=== PATIENT | male | born 1940 | race Caucasian/White ===

== ENCOUNTER 2021-07-27 19:40 | Emergency (ER) | payer MEDICARE, OTHER ==
[2021-07-27] MEDS ORDERED: Sodium Chloride 0.9% 1,000 ML IV ONE (20:19)
[2021-07-27] MEDS ORDERED: Ketorolac 30 MG/ML SDV IVPUSH ONE (20:19)
--- NOTE | 2021-07-27 20:34 | EDM.PDOC ---
ED HPI GENERAL MEDICAL PROBLEM - General Chief Complaint: Genitourinary Problem Stated Complaint: RIGHT SIDE PAIN Time Seen by Provider: 07/27/21 19:49 Source of Information: Reports: Patient History Limitations: Reports: No Limitations - History of Present Illness INITIAL COMMENTS - FREE TEXT/NARRATIVE: 80-year-old male presents the emergency department with complaints of right flank pain that started about 5:30 PM this evening. Patient states that he was having a glass of wine when he developed right flank pain that radiates into his groin. He states that the pain initially made him feel nauseated however he did not vomit. He states for the past 3 days he has noted blood in his urine however he denies any urinary type symptoms such as frequency urgency or burning. He denies any recent fever, chills, nausea, vomiting or diarrhea. He denies any cough or shortness of breath. He denies having history of kidney stones in the past. Right Abdominal Pain Score (Numeric/FACES): 5 - Related Data Allergies Allergy/AdvReac Type Severity Reaction Status Date / Time No Known Allergies Allergy Verified 07/27/21 19:51 Home Meds: Home Meds Famotidine 40 mg PO DAILY 07/27/21 [History] Hydrocodone/Acetaminophen [HYDROcodone-Acetaminophen 5-325 MG] 1 each PO Q4H #14 tab 07/27/21 [Rx] Omeprazole 20 mg PO DAILY 07/27/21 [History] Venlafaxine [Effexor XR] 75 mg PO DAILY 07/27/21 [History] atorvaSTATin [Lipitor] 20 mg PO DAILY 07/27/21 [History] clonazePAM [Clonazepam] 1 mg PO BEDTIME 07/27/21 [History] Past Medical History HEENT History: Reports: Other (See Below) Other HEENT History: glasses Cardiovascular History: Reports: High Cholesterol Gastrointestinal History: Reports: GERD Psychiatric History: Reports: Anxiety Social & Family History - Tobacco Use Tobacco Use Status *Q: Never Tobacco User Second Hand Smoke Exposure: No - Caffeine Use Caffeine Use: Reports: Coffee - Alcohol Use Days Per Week of Alcohol Use: 7 Number of Drinks Per Day: 1 Total Drinks Per Week: 7 - Recreational Drug Use Recreational Drug Use: No ED ROS GENERAL - Review of Systems Review Of Systems: Comprehensive ROS is negative, except as noted in HPI. ED EXAM, RENAL/ - Physical Exam Exam: See Below Exam Limited By: No Limitations General Appearance: Alert, WD/WN, No Apparent Distress Ears: Normal External Exam, Hearing Grossly Normal Nose: Normal Inspection Throat/Mouth: Normal Inspection, Normal Lips, Normal Voice, No Airway Compromise Head: Atraumatic Neck: Normal Inspection, Supple Respiratory/Chest: No Respiratory Distress, Lungs Clear, Normal Breath Sounds, No Accessory Muscle Use, Chest Non-Tender Cardiovascular: Normal Peripheral Pulses, Regular Rate, Rhythm, No Edema, No Murmur GI/Abdominal: Normal Bowel Sounds, Soft, Non-Tender, No Distention (Male) Exam: Deferred Rectal (Males) Exam: Deferred Back Exam: Normal Inspection, Full Range of Motion Extremities: Normal Inspection Neurological: Alert, Oriented, Normal Cognition Psychiatric: Normal Affect, Normal Mood Skin Exam: Warm, Dry, Intact, Normal Color, No Rash Lymphatic: No Adenopathy Course - Vital Signs Text/Narrative:: As stated above, patient presents with right flank pain that started about 530 this evening. Upon exam, the patient is awake and alert and in no apparent distress. He states the right flank pain is rated at a 3-4 out of 10. He denies any nausea at this time. Urinalysis was completed by nursing staff and there is luna blood noted in the urine. I have ordered urinalysis with micro and culture if indicated, CBC, CMP, C-reactive protein. We will obtain a CT of the abdomen pelvis without contrast to rule out kidney stone. I have ordered a liter of normal saline wide open as well as Toradol 30 mg IV. Patient denies nausea at this time. He will notify nursing staff should he become nauseated. Last Recorded V/S: Last Vital Signs Temp 98.0 F 07/27/21 19:56 Pulse 89 07/27/21 19:56 Resp 18 07/27/21 19:56 BP 146/91 H 07/27/21 19:56 Pulse Ox 97 07/27/21 19:56 - Orders/Labs/Meds Orders: Active Orders 24 hr Category Date Time Status Abdomen Pelvis wo Cont [CT] Stat Exams 07/27/21 20:03 Taken Labs: Laboratory Tests 07/27/21 07/27/21 07/27/21 Range/Units 19:59 20:10 20:10 WBC 7.20 (4.23-9.07) K/mm3 RBC 4.71 (4.63-6.08) M/mm3 Hgb 14.7 (13.7-17.5) gm/dl Hct 44.2 (40.1-51.0) % MCV 93.8 H (79.0-92.2) fl MCH 31.2 (25.7-32.2) pg MCHC 33.3 (32.2-35.5) g/dl RDW Std Deviation 43.0 (35.1-43.9) fL Plt Count 231 (163-337) K/mm3 MPV 9.7 (9.4-12.3) fl Neut % (Auto) 62.5 (34.0-67.9) % Lymph % (Auto) 21.7 L (21.8-53.1) % Bell % (Auto) 10.6 (5.3-12.2) % Eos % (Auto) 4.7 (0.8-7.0) Baso % (Auto) 0.4 (0.1-1.2) % Neut # (Auto) 4.50 (1.78-5.38) K/mm3 Lymph # (Auto) 1.56 (1.32-3.57) K/mm3 Bell # (Auto) 0.76 (0.30-0.82) K/mm3 Eos # (Auto) 0.34 (0.04-0.54) K/mm3 Baso # (Auto) 0.03 (0.01-0.08) K/mm3 Sodium 137 (136-145) mEq/L Potassium 3.9 (3.5-5.1) mEq/L Chloride 104 (98-107) mEq/L Carbon Dioxide 27 (21-32) mEq/L Anion Gap 9.9 (5-15) BUN 27 H (7-18) mg/dL Creatinine 1.6 H (0.7-1.3) mg/dL Est Cr Clr Drug Dosing 39.63 mL/min Estimated GFR (MDRD) 42 (>60) mL/min BUN/Creatinine Ratio 16.9 (14-18) Glucose 92 (70-99) mg/dL Calcium 9.2 (8.5-10.1) mg/dL Magnesium 2.0 (1.8-2.4) mg/dL Total Bilirubin 0.3 (0.2-1.0) mg/dL AST 28 (15-37) U/L ALT 30 (16-63) U/L Alkaline Phosphatase 73 (46-116) U/L C-Reactive Protein <0.2 (<1.0) mg/dL Total Protein 7.0 (6.4-8.2) g/dl Albumin 3.9 (3.4-5.0) g/dl Globulin 3.1 gm/dL Albumin/Globulin Ratio 1.3 (1-2) Urine Color Yellow (Yellow) Urine Appearance Clear (Clear) Urine pH 5.5 (5.0-8.0) Ur Specific [place] 1.025 (1.005-1.030) Urine Protein Negative (Negative) Urine Glucose (UA) Negative (Negative) Urine Ketones Negative (Negative) Urine Occult Blood 2+ H (Negative) Urine Nitrite Negative (Negative) Urine Bilirubin Negative (Negative) Urine Urobilinogen 0.2 (0.2-1.0) Ur Leukocyte Esterase Negative (Negative) U Hyaline Cast (Auto) 0-5 (0-5) /lpf Urine RBC 5-10 H (0-5) /hpf Urine WBC 0-5 (0-5) /hpf Ur Epithelial Cells 0-5 (0-5) /hpf Urine Bacteria Few (FEW) /hpf Urine Mucus Many H (FEW) /hpf Meds: Medications Discontinued Medications Generic Name Dose Route Start Last Admin Trade Name Freq PRN Reason Stop Dose Admin Sodium Chloride 1,000 mls @ 999 mls/hr 07/27/21 20:19 07/27/21 20:26 Normal Saline IV 07/27/21 21:19 999 mls/hr ONETIME ONE Administration Ketorolac Tromethamine 30 mg 07/27/21 20:19 07/27/21 20:26 Ketorolac 30 Mg/Ml Sdv IVPUSH 07/27/21 20:20 30 mg ONETIME ONE Administration - Re-Assessments/Exams Free Text/Narrative Re-Assessment/Exam: 07/27/21 21:01 Hematology is essentially unremarkable, chemistry reveals a BUN of twenty-seven, creatinine 1.6, C-reactive protein less than 0.2 Urinalysis reveals 2+ occult blood, 5-10 RBCs with many mucus. 07/27/21 21:[address] of the abdomen and pelvis without contrast: 1. There is an obstructing 12.0 x 8.0 mm proximal right ureteral calculus resulting in moderate right hydroureteral nephrosis. 2. Left-sided diverticulosis without diverticulitis. 07/27/21 21:30 I phoned [facility] in [place] and spoke to the urologist on-call, Dr. Hopper, to consult with him regarding this patient. Patient will be discharged home with hydrocodone tabs. Dr. Hopper states that someone will contact him first thing on Thursday to schedule an appointment for either lithotripsy or laser treatment of the calculus. He states that should the patient develop a fever at any time this weekend that he needs to go directly to [facility] department in [place] to be evaluated. I discussed this with the patient and his and they verbalized understanding of the instructions. I have sent a prescription for hydrocodone tabs for the patient to [facility]. 07/27/21 21:52 I have pushed the patient scans to [facility]. Will fax the patient's chart and a facesheet to [facility]. Departure - Departure Time of Disposition: 21:39 Disposition: Home, Self-Care 01 Condition: Good Clinical Impression: Kidney stone - Discharge Information Prescriptions: Hydrocodone/Acetaminophen [HYDROcodone-Acetaminophen 5-325 MG] 1 each PO Q4H #14 tab Referrals: PCP,Not In Area [Primary Care Provider] - Forms: ED Department Discharge Additional Instructions: You were seen in the emergency department with right-sided flank pain. Urinalysis and lab work was completed. Urine did show blood however no signs of infection. Lab work did not show any signs of infection. CT scan revealed that there is an obstructing 12 x 8 mm right kidney stone. This will not pass on its own. Will be discharged home with a pain medication called hydrocodone. You can take 1-2 tabs every 4-6 hours as needed for more severe pain. May also take ibuprofen 600 mg every 6-8 hours as needed for pain. I did speak with [facility] urologist, , who is aware of your situation. He states that someone will be calling you first thing on Thursday to set up an appointment as you will likely need to have ultrasound or a laser to remove the stone. Should you develop a fever at all this weekend Dr. Hopper recommends that you head straight to [facility] emergency room because that is then considered a medical emergency. Be sure to drink plenty of water to keep hydrated and help to flush the kidneys. Should your condition worsen or change, do not hesitate returning to the emergency department. Sepsis Event Note (ED) - Focused Exam Vital Signs: Vital Signs Temp Pulse Resp BP Pulse Ox 07/27/21 19:56 98.0 F 89 18 146/91 H 97 - My Orders Last 24 Hours: My Active Orders 07/27/21 20:03 Abdomen Pelvis wo Cont [CT] Stat - Assessment/Plan Last 24 Hours: My Active Orders 07/27/21 20:03 Abdomen Pelvis wo Cont [CT] Stat
--- NOTE | 2021-07-28 16:46 | CT ---
CT abdomen and pelvis Technique: Multiple axial sections were obtained from above the dome of the diaphragm inferiorly through the pubic symphysis. Intravenous and oral contrast were not utilized. Study has been performed as a ureteral stone protocol. Reconstructed coronal and sagittal images were obtained. Comparison: No prior abdominal imaging is available. Findings: Right and left kidneys show no abnormal calcifications. There is dilated right collecting system being seen. Findings are caused by an obstructing stone within the proximal right ureter close to the UPJ measuring 1.2 cm. No other ureteral calculi are seen. Slight atelectasis is noted within both lung bases. Noncontrast appearance of the liver shows no focal abnormality. Spleen size is normal. Adrenal glands show no nodule. Pancreas shows no discrete abnormality. Gallbladder contains no calcified gallstones. Abdominal aorta shows atherosclerotic calcification which continues into the iliac vessels. No retroperitoneal adenopathy or mesenteric abnormalities are seen. No pelvic mass or adenopathy is seen. Minimal diverticulosis is seen at the junction of the descending and sigmoid regions. Bone window settings were reviewed which show degenerative change within the lumbar spine and within both hips. Impression: 1. 1.2 cm obstructing stone within the proximal right ureter close to the UPJ. 2. No renal calculi are seen. 3. Other findings which are felt to be chronic as noted above. Diagnostic code #3 I agree with preliminary report from [facility], finalized on 07/27/21, 10:15 PM CDT, code 1
== END 2021-07-27 21:55 | disposition home or self-care (01) ==
LOC: JD.ED 19:40
DX: N13.2 Hydronephrosis with renal and ureteral calculous obstruction (principal); E78.00 Pure hypercholesterolemia, unspecified; K21.9 Gastro-esophageal reflux disease without esophagitis; Z79.899 Other long term (current) drug therapy
CPT/HCPCS: 36415; 74176; 80053; 81001; 83735; 85025; 86140; 96374; 99284; J1885; J7030

== ENCOUNTER 2022-06-15 08:37 | Emergency (ER) | payer MEDICARE, OTHER ==
[2022-06-15] MEDS ORDERED: Lidocaine 1% 10 ML MDV INJECT ONE (08:55)
== END 2022-06-15 09:25 | disposition home or self-care (01) ==
LOC: JD.ED 08:37
DX: S01.312A Laceration without foreign body of left ear, initial encounter (principal); E78.00 Pure hypercholesterolemia, unspecified; K21.9 Gastro-esophageal reflux disease without esophagitis; Z79.899 Other long term (current) drug therapy; W06.XXXA Fall from bed, initial encounter
CPT/HCPCS: 12011; 99282